=== PATIENT | female | born 1950 | race Caucasian/White ===

== ENCOUNTER 2022-02-10 10:59 | Inpatient (IN) | payer MEDICARE ==
[2022-02-10 11:29] LABS: #Eosinphils 0.2 thou/uL (0.0-0.7); #Monocytes 0.8 thou/uL (0.11-0.59); #Neutrophils 7.4 thou/uL (1.40-6.50); %Basophils 0.2 % (0.0-1.0); %Eosinophils 1.9 % (0.0-10.0); %Lymphocytes 10.5 % (21.0-51.0); %Monocytes 8.3 % (0.0-10.0); %Neutrophils 79.1 % (42.0-75.0); Hemoglobin 15.5 g/dL (12.0-16.0); Mean Corpuscular HGB CONC 32.9 g/dL (32.0-36.0); Mean Corpuscular Hemoglobin 31.4 pg (27.0-31.0); Mean Corpuscular Volume 95.4 fL (78.0-98.0); Mean Platelet Volume 9.5 fL (7.4-10.4); Platelet Count 216 thou/uL (130-400); RBC Distribution Width 13.2 % (11.5-14.5); Red Blood Cell (RBC) Count 4.94 mill/uL (4.20-5.40); White Blood Cell (WBC) Count 9.4 thou/uL (4.8-10.8)
[2022-02-10 12:10] LABS: Bacteria/HPF 4+ HPF (None Seen); Bilirubin Negative (Negative); Blood, Urine Negative (Negative); Clarity Turbid (Clear); Glucose, Urine (Dipstick) Normal (Negative); Ketone, Urine Negative (Negative); Leukocyte 500 Leu/uL (Negative); Nitrite Negative (Negative); Protein, Urine (Dipstick) 30 mg/dL (Neg-Trace); RBC/HPF 0-3 HPF (0-3); Squamous Epithelial 0-3 HPF (0-3); Urobilinogen Normal mg/dL (Less than 2); pH, Urine 5.5 (5.0-9.0)
[2022-02-10 12:17] LABS: Chloride 104 mmol/L (98-107); Potassium 5.8 mmol/L (3.5-5.1); Sodium 136 mmol/L (136-145)
[2022-02-10 12:18] LABS: Calcium 8.6 mg/dL (7.8-10.44)
[2022-02-10 12:18] LABS: Amphetamine Not Detected (NotDetected); Barbiturates Screen Not Detected (NotDetected); Benzodiazepine Screen Not Detected (NotDetected); Cocaine Metabolite Screen Not Detected (NotDetected); Methadone Not Detected (NotDetected); Methamphetamine Not Detected (NotDetected); Opiate Screen Not Detected (NotDetected); Oxycodone Screen Not Detected (NotDetected); Phencyclidine (PCP) Not Detected (NotDetected); THC/Cannabinoid Screen Not Detected (NotDetected); Tricyclic Screen Not Detected (NotDetected)
[2022-02-10 12:19] LABS: Globulin 3.2 g/dL (2.4-3.5); Glucose 98 mg/dL (83-110); Protein, Total 7.2 g/dL (5.8-8.1)
[2022-02-10 12:20] LABS: Anion Gap 27 mmol/L (10-20); Bilirubin, Total 0.6 mg/dL (0.2-1.2); Carbon Dioxide 11 mmol/L (23-31)
[2022-02-10 12:21] LABS: Alcohol Less than 10 mg/dL (Less than 10)
[2022-02-10 12:22] LABS: Alkaline Phosphatase 62 U/L (40-110); Calc. Creatinine Clearance 0 mL/min (70-130)
[2022-02-10 12:23] LABS: BUN (Urea Nitrogen) 53 mg/dL (9.8-20.1)
[2022-02-10 12:24] LABS: AST (SGOT) 15 U/L (5-34)
[2022-02-10 12:25] LABS: ALT (SGPT) Less than 7 U/L (8-55); Acetaminophen Less than 10.0 mcg/mL (10.0-30.0); CK (CPK) 35 U/L (29-168); Salicylate Less than 8.0 mg/dL (15.0-30.0)
[2022-02-10] MEDS ORDERED: cefTRIAXone\\ROCEPHIN 1 GM VIAL ONE (12:27)
[2022-02-10] MEDS ORDERED: Aspirin Chewable 81 MG TAB ONE (12:27)
[2022-02-10] MEDS ORDERED: Ondansetron ODT 4 MG TAB PO PRN (14:38)
[2022-02-10] MEDS ORDERED: Acetaminophen 325 MG TAB PO PRN (14:38)
[2022-02-10] MEDS ORDERED: Senokot S 8.6-50 MG TAB PO PRN (14:38)
[2022-02-10] MEDS ORDERED: Ondansetron PF 4 MG/2 ML Vial IVP PRN (14:38)
[2022-02-10] MEDS ORDERED: Sodium Bicarb 50 MEQ/50 ML Abboject 8.4% SYRINGE IVP SCH (14:46)
[2022-02-10 16:49] LABS: Phosphorus 5.4 mg/dL (2.3-4.7)
[2022-02-10 17:09] VITALS: BMI 19.8
[2022-02-10 17:53] LABS: SARS-CoV-2 NAA Rapid Test Not Detected (NotDetected)
[2022-02-10] MEDS: Nicotine 14 MG PATCH TD SCH (17:53)
[2022-02-10] MEDS: hydrALAZINE 20 MG/ML VIAL SLOW IVP PRN (17:53)
[2022-02-10] MEDS: Sodium Chloride 0.9% 1,000 ML IV SCH (17:53)
[2022-02-10] MEDS: Sodium Bicarbonate Tab 325 MG TAB PO SCH (21:07)
[2022-02-10] MEDS: Rosuvastatin 10 MG TAB PO SCH (21:09)
[2022-02-11] MEDS: Sodium Chloride 0.9% 1,000 ML IV SCH ×3 (03:33→20:32)
[2022-02-11] MEDS ORDERED: NIFEdipine XL 30 MG TAB PO SCH (09:00)
[2022-02-11] MEDS ORDERED: Heparin 5,000 UNITS/ML VIAL SC SCH (09:00)
[2022-02-11] MEDS: Sodium Bicarbonate Tab 325 MG TAB PO SCH ×3 (09:26→20:25)
[2022-02-11] MEDS: Aspirin 81 mg Enteric Coated Tablet PO SCH (09:26)
[2022-02-11] MEDS: Clopidogrel Bisulfate 75 MG TAB PO SCH (09:26)
[2022-02-11 10:06] LABS: #Eosinphils 0.1 thou/uL (0.0-0.7); #Lymphocytes 0.6 thou/uL (1.20-3.40); #Monocytes 0.8 thou/uL (0.11-0.59); #Neutrophils 5.6 thou/uL (1.40-6.50); %Basophils 0.3 % (0.0-1.0); %Eosinophils 1.5 % (0.0-10.0); %Lymphocytes 8.6 % (21.0-51.0); %Monocytes 10.8 % (0.0-10.0); %Neutrophils 78.7 % (42.0-75.0); Hemoglobin 11.8 g/dL (12.0-16.0); Mean Corpuscular HGB CONC 32.8 g/dL (32.0-36.0); Mean Corpuscular Hemoglobin 31.3 pg (27.0-31.0); Mean Corpuscular Volume 95.5 fL (78.0-98.0); Mean Platelet Volume 9.2 fL (7.4-10.4); Platelet Count 163 thou/uL (130-400); Red Blood Cell (RBC) Count 3.77 mill/uL (4.20-5.40); White Blood Cell (WBC) Count 7.1 thou/uL (4.8-10.8)
[2022-02-11 10:16] LABS: Anion Gap 16 mmol/L (10-20); BUN (Urea Nitrogen) 53 mg/dL (9.8-20.1); Calc. Creatinine Clearance 8 mL/min (70-130); Calcium 7.7 mg/dL (7.8-10.44); Carbon Dioxide 17 mmol/L (23-31); Chloride 110 mmol/L (98-107); Glucose 111 mg/dL (83-110); Sodium 139 mmol/L (136-145)
[2022-02-11 10:25] LABS: Anion Gap 17 mmol/L (10-20); BUN (Urea Nitrogen) 51 mg/dL (9.8-20.1); Calc. Creatinine Clearance 9 mL/min (70-130); Calcium 7.6 mg/dL (7.8-10.44); Carbon Dioxide 16 mmol/L (23-31); Cardiac Risk 3.8 (Less than 4.5); Chloride 110 mmol/L (98-107); Cholesterol 126 mg/dl (< 200 Desired); Glucose 110 mg/dL (83-110); HDL Cholesterol 33 mg/dL (>60 Neg Risk); LDL Cholesterol, Calculated 63 mg/dL; Sodium 139 mmol/L (136-145); Triglycerides 150 mg/dL (Less than 150)
[2022-02-11] MEDS: cefTRIAXone\\ROCEPHIN 1 GM in Sodium Chloride 0.9% 100 ML IVPB SCH (12:05)
[2022-02-11] MEDS: hydrALAZINE 25 MG TAB PO SCH ×3 (14:59→20:25)
[2022-02-11] MEDS: Nicotine 14 MG PATCH TD SCH (15:05)
[2022-02-11] MEDS: Sevelamer Carbonate 800 MG TAB PO SCH (17:24)
[2022-02-11] MEDS: Rosuvastatin 10 MG TAB PO SCH (20:25)
[2022-02-11] MEDS: NIFEdipine XL 30 MG TAB PO SCH (20:26)
[2022-02-12] MEDS: hydrALAZINE 20 MG/ML VIAL SLOW IVP PRN (00:30)
[2022-02-12 05:22] LABS: Hemoglobin A1c 5.2 % (4.0-6.0)
[2022-02-12 05:37] LABS: Anion Gap 18 mmol/L (10-20); BUN (Urea Nitrogen) 56 mg/dL (9.8-20.1); Calc. Creatinine Clearance 7 mL/min (70-130); Carbon Dioxide 16 mmol/L (23-31); Chloride 107 mmol/L (98-107); Glucose 134 mg/dL (83-110); Potassium 3.6 mmol/L (3.5-5.1); Sodium 137 mmol/L (136-145)
[2022-02-12] MEDS: Sodium Bicarbonate Tab 325 MG TAB PO SCH ×3 (08:16→20:25)
[2022-02-12] MEDS: Clopidogrel Bisulfate 75 MG TAB PO SCH (08:17)
[2022-02-12] MEDS: NIFEdipine XL 30 MG TAB PO SCH ×2 (08:17→20:25)
[2022-02-12] MEDS: Sevelamer Carbonate 800 MG TAB PO SCH ×3 (08:17→18:36)
[2022-02-12] MEDS: hydrALAZINE 25 MG TAB PO SCH ×4 (08:17→20:26)
[2022-02-12] MEDS: Aspirin 81 mg Enteric Coated Tablet PO SCH (08:17)
[2022-02-12] MEDS: Labetalol HCl 100 MG TAB PO SCH ×3 (08:18→20:25)
[2022-02-12] MEDS: Sodium Chloride 0.9% 1,000 ML IV SCH ×2 (08:18→19:16)
[2022-02-12] MEDS ORDERED: Vancomycin 1 GM in Premix Bag 1 BAG IVPB SCH ×2 (09:00→09:45)
[2022-02-12] MEDS ORDERED: Clopidogrel Bisulfate 75 MG TAB PO SCH (09:00)
[2022-02-12] MEDS ORDERED: Vancomycin Hemodialysis Sliding Scale FS SCH (09:45)
[2022-02-12] MEDS: cefTRIAXone\\ROCEPHIN 1 GM in Sodium Chloride 0.9% 100 ML IVPB SCH (13:44)
[2022-02-12] MEDS: Nicotine 14 MG PATCH TD SCH (15:34)
[2022-02-12] MEDS: Rosuvastatin 10 MG TAB PO SCH (20:25)
[2022-02-13 07:33] LABS: Vancomycin, Random 14.6 ug/mL (See Comment)
[2022-02-13] MEDS: Sevelamer Carbonate 800 MG TAB PO SCH ×3 (08:56→17:58)
[2022-02-13] MEDS: Sodium Bicarbonate Tab 325 MG TAB PO SCH ×2 (08:56→16:09)
[2022-02-13] MEDS: NIFEdipine XL 30 MG TAB PO SCH (08:57)
[2022-02-13] MEDS: Aspirin 81 mg Enteric Coated Tablet PO SCH (08:57)
[2022-02-13] MEDS: Labetalol HCl 100 MG TAB PO SCH ×2 (09:03→16:09)
[2022-02-13] MEDS: hydrALAZINE 25 MG TAB PO SCH ×3 (09:04→17:59)
[2022-02-13] MEDS: Clopidogrel Bisulfate 75 MG TAB PO SCH (09:04)
[2022-02-13] MEDS: cefTRIAXone\\ROCEPHIN 1 GM in Sodium Chloride 0.9% 100 ML IVPB SCH (12:50)
[2022-02-13 15:41] VITALS: TEMP 97.6
[2022-02-13] MEDS: Nicotine 14 MG PATCH TD SCH (16:10)
[2022-02-13] MEDS ORDERED: Furosemide 100 MG/10 ML VIAL SLOW IVP SCH (16:15)
[2022-02-13 16:38] VITALS: BP 118/72
[2022-02-13] MEDS ORDERED: Vancomycin HCl 500 MG in Sodium Chloride 0.9% 100 ML IVPB SCH (17:00)
== END 2022-02-13 18:49 | disposition hospice, home (50) | DRG 682 ==
LOC: ERS 10:59 → NEURO 13:12
PROVIDERS: ADMIT Family Medicine; ATTEND Family Medicine
DX: N17.9 Acute kidney failure, unspecified (principal); J96.01 Acute respiratory failure with hypoxia; N39.0 Urinary tract infection, site not specified; G45.9 Transient cerebral ischemic attack, unspecified; E87.2 Acidosis; I69.951 Hemiplegia and hemiparesis following unspecified cerebrovascular disease affecting right dominant side; J44.1 Chronic obstructive pulmonary disease with (acute) exacerbation; E44.0 Moderate protein-calorie malnutrition; Z68.1 Body mass index [BMI] 19.9 or less, adult; N18.4 Chronic kidney disease, stage 4 (severe); I16.0 Hypertensive urgency; Z20.822 Contact with and (suspected) exposure to COVID-19; E78.5 Hyperlipidemia, unspecified; Z66 Do not resuscitate; I25.10 Atherosclerotic heart disease of native coronary artery without angina pectoris; F41.9 Anxiety disorder, unspecified; F17.210 Nicotine dependence, cigarettes, uncomplicated; I12.9 Hypertensive chronic kidney disease with stage 1 through stage 4 chronic kidney disease, or unspecified chronic kidney disease; M54.50 Low back pain, unspecified; G89.29 Other chronic pain; F32.A Depression, unspecified; E83.39 Other disorders of phosphorus metabolism; I71.4 Abdominal aortic aneurysm, without rupture; I73.9 Peripheral vascular disease, unspecified; R29.6 Repeated falls; G93.89 Other specified disorders of brain; E87.5 Hyperkalemia; E83.52 Hypercalcemia; I49.3 Ventricular premature depolarization; E87.70 Fluid overload, unspecified; Z79.899 Other long term (current) drug therapy; Z28.311 Partially vaccinated for COVID-19; Z79.01 Long term (current) use of anticoagulants; I25.2 Old myocardial infarction; Z91.14 Patient's other noncompliance with medication regimen
CPT/HCPCS: 36415; 51701; 70450; 70551; 71045; 74150; 76770; 80048; 80053; 80061; 80202; 80306; 80307; 81003; 81015; 82140; 82550; 83036; 83605; 83690; 83880; 83970; 84100; 84443; 84484; 85025; 87040; 87077; 87086; 87149; 87186; 93005; 93010; 93306; 94640; 95712; 95819; 95957; 96365; 96374; 96375; J0360; J0696; J1644; J1940; J3370; J3490; J7050; J7620